=== PATIENT | male | born 1955 | race Caucasian/White ===

== ENCOUNTER 2024-06-29 00:52 | Inpatient (IN) | payer MEDICARE, OTHER, SELFPAY ==
[2024-06-28 19:37] VITALS: BP 111/74; BMI 32.2
[2024-06-28 19:38] VITALS: BP 111/74
[2024-06-28 19:58] LABS: % Basophils 0.2 % (0-2); % Eosinophils 0.3 % (0-6); % Immature Granulocytes 0.5 % (0-0.5); % Lymphocytes 8.6 % (20.5-51.1); % Neutrophils 80.4 % (42.2-75.2); Absolute Immature Granulocytes 0.1 10^3/uL (0-0.05); Absolute Lymphocytes 1.2 10^3/uL (1.2-3.4); Absolute Monocytes 1.4 10^3/uL (0.1-0.6); Absolute Neutrophils 11.1 10^3/uL (1.4-6.5); Hematocrit 31.3 % (39.0-52.0); Hemoglobin 10.6 g/dL (13.0-18.0); Mean Corp Hgb Conc. 33.9 g/dL (33.0-37.0); Mean Corpuscular Hgb 30.5 pg (27.0-31.0); Mean Corpuscular Volume 90.2 fL (80.0-94.0); Mean Platelet Volume 9.2 fL (7.4-10.4); Nucleated Red Blood Cells % 0 % (-); Platelet Count 276 10^3/uL (130-400); Red Blood Cell Count 3.47 10^6/uL (4.70-6.10); Red Cell Dist. Width 13.2 % (11.5-14.5); White Blood Cell Count 13.8 10^3/uL (4.8-10.8)
[2024-06-28 20:00] VITALS: BP 117/64
[2024-06-28 20:23] LABS: Troponin I < 0.012 ng/ml
[2024-06-28 20:31] LABS: ALT (SGPT) 18 U/L (0-50); AST (SGOT) 19 U/L (17-59); Albumin 4.1 g/dl (3.5-5.0); Alkaline Phosphatase 86 U/L (38-126); Blood Urea Nitrogen 32 mg/dl (9-20); Calcium 9.7 mg/dl (8.4-10.2); Carbon Dioxide 16 mmol/L (22-30); Chloride 101 mmol/L (98-107); Estimated Creatinine Clearance 46 ml/min; Glucose 153 mg/dl (70-99); Potassium 3.9 mmol/L (3.5-5.1); Sodium 134 mmol/L (135-145); Total Bilirubin 0.7 mg/dl (0.2-1.3); Total Protein 6.6 g/dl (6.3-8.2); eGFR 42.57
[2024-06-28 21:00] VITALS: BP 110/75
--- NOTE | 2024-06-28 21:49 | ED.GENMED ---
History of Present Illness
General
Chief Complaint: Dizziness
Source: patient and spouse
Exam Limitations: none
Time Seen by Provider: 06/28/24 20:46
Nursing documentation reviewed up to this point in time: agreed with
History of Present Illness
History of Present Illness:
69-year-old male with a past medical history of hypertension, hyperlipidemia, diabetes, bladder cancer status post cystectomy with urostomy bag in place; he presents to the emergency room today for evaluation after an episode of
dizziness/lightheadedness. Patient reports that he has been feeling unwell for the past few days with poor appetite and mild nausea. He says he has had some mild chills but no objective fever. Tonight he went to dinner at a friend's house and
while he was eating some pizza and beer began to have lightheadedness. Spouse says that they witnessed him become clammy, pale, confused with his eyes staring forward. No complete loss of consciousness. Lasted for about 15 to 20 seconds. EMS
called to bring her to the hospital. Patient says he did not have any chest pain or shortness of breath during the episode. He did have some dry heaving shortly after. No abdominal pain or flank pain. No headache. No other complaints noted.
Review of Systems
Review of Systems
All Other Systems: ROS reviewed and negative except as documented in HPI and ROS
Constitutional: Reports chills; Denies fever
EENT: Denies sore throat or runny nose
Respiratory: Denies cough or trouble breathing
Cardiac: Denies chest pain or palpitations
ABD/GI: Reports nausea and vomiting; Denies abdominal pain or diarrhea
: Denies flank pain
Musculoskeletal: Denies neck pain or back pain
Skin: Denies rash
Neurological: Reports dizzy; Denies headache
Phy Exam
Physical Exam
Physical Exam:
General: Awake, alert, oriented x3; no acute distress
Head: Normocephalic, atraumatic
Eyes: Conjunctiva normal, EOMI, pupils equal round and reactive to light bilaterally
Throat: Airway intact, handling secretions
Neck: Trachea midline, supple without meningismus
Lungs: Clear to auscultation bilaterally, no wheezing, rales, rhonchi
Heart: Tachycardia with regular rhythm, no murmurs, gallops, or rubs
Abd: Soft, non distended, nontender, urostomy in place with dark yellow urine and some sediment
Neuro: Cranial intact, speech fluid, no motor or sensory deficits
Skin: no rash
Extremities: No edema in extremities, equal pulses in all extremities
Scores
Heart Failure Risk
Heart Failure Risk Score: Not Applicable
Heart Score for Chest Pain Patients
STEMI patient?: Not applicable
Withdrawal Assessment of Alcohol
Withdrawal Assessment Completed?: Not applicable
Course
Orders/Labs/Results
Orders:
Orders
06/28/24 19:50
Electrocardiogram (*1) Urgent
Reason for Study: Other
Other Reason for Exam: Respiratory Distress
EKG- Treatment ONCE
06/28/24 19:52
Complete Blood Count/With Diff Urgent
Comprehensive Metabolic Panel Urgent
Troponin I Urgent
06/28/24 21:05
CT Abd/pel Without Iv Or Oral Urgent
Comment:
Reason For Exam: abnormal renal function, chills, r/o obstruction
CT Head W/o Iv Contrast Urgent
Comment:
Reason For Exam: nausea, syncope
06/28/24 21:06
CR Chest - 2 Views Urgent
Comment:
Reason For Exam: chills, eval for pna
06/28/24 22:05
COVID-19 Antigen Urgent
Source: Nasal Swab
Lactate Level [Lactic Acid] Urgent
Blood Culture Q30M
IRA Source: Blood/Venous
Specimen Description:
Blood Culture Q30M
IRA Source: Blood/Venous
Specimen Description:
Influenza A+B Rapid Molecular Urgent
IRA Source: Nasal Swab
Specimen Description:
06/28/24 23:05
Urinalysis Reflex To Culture Urgent
Date Specimen was Collected: 06/28/24
Time Specimen was Collected: 23:04
Urine Microscopic Reflex Cult Urgent
Urine Culture Urgent
IRA Source: U
Specimen Description:
Date Specimen was Collected: 06/28/24
Time Specimen was Collected: 23:04
06/28/24 23:18
0.9% Sodium Chloride 1000 ml [Nss] 1,000 ml IV BOLUS
CefTRIAXone [Rocephin] 1,000 mg IV NOW STA
Abnormal Lab Results
06/28/24 06/28/24
19:52 23:05
WBC 13.8 H 10^3/uL
(4.8-10.8)
RBC 3.47 L 10^6/uL
(4.70-6.10)
Hgb 10.6 L g/dL
(13.0-18.0)
Hct 31.3 L %
(39.0-52.0)
Abs Immat Gran (auto) 0.1 H 10^3/uL
(0-0.05)
Absolute Neuts (auto) 11.1 H 10^3/uL
(1.4-6.5)
Absolute Monos (auto) 1.4 H 10^3/uL
(0.1-0.6)
Neutrophils % 80.4 H %
(42.2-75.2)
Lymphocytes % 8.6 L %
(20.5-51.1)
Monocytes % 10.0 H %
(1.7-9.3)
Sodium 134 L mmol/L
(135-145)
Carbon Dioxide 16 L mmol/L
(22-30)
BUN 32 H mg/dl
(9-20)
Creatinine 1.7 H mg/dL
(0.7-1.3)
Glucose 153 H mg/dl
(70-99)
Ur Occult Blood Reflex 2+ A
(Negative)
Urine Nitrite (Reflex) Positive A
(Negative)
Leukocyte Esterase Rfl 3+ A
(Negative)
Urine RBC 7-10 A /HPF
(0-2)
Urine WBC (Reflex) 30-40 A /HPF
(0-5)
Urine Bacteria (Reflex) Many A
(Negative)
Urine Albumin (Reflex) 2+ A
(Neg - Trace)
06/28/24 19:52
06/28/24 19:52
Vital Signs
Initial and Last Documented VS:
Initial Vital Signs
Temp Pulse Resp BP Pulse Ox
37.2 C 107 24 111/74 96
06/28/24 19:37 06/28/24 19:37 06/28/24 19:37 06/28/24 19:37 06/28/24 19:37
Last Documented Vital Signs
Temp Pulse Resp BP Pulse Ox
37.2 C 86 26 103/69 94
06/28/24 19:37 06/28/24 23:00 06/28/24 23:00 06/28/24 23:00 06/28/24 23:00
MDM/Problems Addressed
Differential Diagnosis Includes:
Lightheadedness/clamminess: Vasovagal syncope, orthostasis, dysrhythmia, seizure considered less likely
Malaise, chills, nausea: Viral syndrome, electrolyte derangement, pneumonia, UTI
MDM/Problems Addressed:
69-year-old male with history as noted presents to the ER for evaluation of episode of lightheadedness and clamminess/confusion in the setting of recent malaise. Also had some nausea/vomiting this evening. Tachycardic with mild tachypnea but
otherwise normal vitals. Physical exam as above. Will place an IV send labs including a CBC and a CMP, lactate, blood cultures. Check EKG and troponin. Swab for COVID and flu. Check chest x-ray and urinalysis. Will check CT head. Reassess
after the above.
Initial labs reviewed: CBC shows leukocytosis to 13.8. Stable anemia at 10.6. CMP shows creatinine of 1.7�no baseline available for comparison. Provide IV fluids. Add CT abdomen pelvis to rule out obstruction.
CT head negative for any acute pathology. CT abdomen pelvis shows perinephric stranding nonspecific�UA pending. Chest x-ray showed no pneumonia. COVID and flu negative. Continue to monitor.
UA is positive for nitrites this finding in conjunction with perinephric edema concerning for possible pyelonephritis. He has multiple SIRS criteria with leukocytosis, tachypnea, tachycardia on presentation (although tachycardia has improved with
fluids). Renal function abnormal with a creatinine of 1.7�he was able to pull up prior labs from February shows that his creatinine was at baseline 1.3�1.4. Will plan to admit for continued monitoring, fluids overnight, IV antibiotics. Blood
culture sent and pending. Case discussed with hospitalist.
Chronic conditions affecting care:
Bladder cancer status post cystectomy
*Radiology
Radiology exam reviewed: preliminary read by ED provider and radiology read reviewed
*Pulse Oximetry
Patient hypoxic: no
*EKG
Interpreted by ED Provider?: Yes
Heart Rate: 100
Rate: normal
Rhythm: sinus and PAC's
[place]: left axis deviation
Interval: normal interval
QRS Pattern: normal QRS
Ischemia: other (inferior infarct age indetermined )
*Critical Care Note
Total Time (30-74mins, 75-104mins- exclusive of procedures): Not Applicable
Patient Management
Discussion with other providers: Hospitalist (Discussed with hospitalist)
Escalation/DeEscalation of care consider admission/obs:
Admission indicated
ED Attending Note
-
Portions of this chart may have been created with voice recognition software.� Occasional wrong word or��sound alike� substitutions may have occurred due to the inherent limitations of voice recognition software.
Discharge Plan
Departure
Patient Disposition: Admit
Date of Disposition: 06/28/24
Time of Disposition: 23:26
Admit to doctor: Gael
Presentation/result/management discussed w/ accepting MD/DO: Hospitalist
Discharge Problem:
Complicated urinary tract infection, DANAY (acute kidney injury)
Referrals:
Dennys Douglas DO [Family Provider] -
Interventions
Interventions:
*Risk Screen - Suicide Last Done: 06/28/24 19:37
*General Assessment Last Done: 06/28/24 19:37
*Neglect/Abuse Screening Last Done: 06/28/24 19:37
ED- Neurological Assessment Last Done: 06/28/24 20:14
ED- Cardiac Assessment Last Done: 06/28/24 20:14
Discharge Date and Time
Print Language: AFGHAN
[2024-06-28 22:04] VITALS: BP 105/72
[2024-06-28 22:25] LABS: Lactic Acid 0.9 mmol/L (0.7-2.0)
[2024-06-28 22:31] LABS: COVID-19 Antigen Negative (Negative)
[2024-06-28 23:00] VITALS: BP 103/69
[2024-06-28 23:09] LABS: Urine Albumin 2+ (Neg - Trace); Urine Bilirubin Negative (Negative); Urine Character Clear (Clear); Urine Color Yellow; Urine Glucose Negative (Negative); Urine Ketone Negative (Negative); Urine Leukocyte 3+ (Negative); Urine Nitrite Positive (Negative); Urine Occult Blood 2+ (Negative); Urine Urobilinogen Negative (Neg - 1+)
[2024-06-28 23:19] LABS: Urine Bacteria Many (Negative); Urine Squamous Cell None seen /LPF (Few); Urine White Cell 30-40 /HPF (0-5)
[2024-06-28] MEDS: NSS 1000 IV ×2 (23:28)
[2024-06-28] MEDS: ROCEPHIN 1000 MG IV (23:28)
[2024-06-29] VITALS (11 sets, daily range): BP systolic 106–134; BP diastolic 61–78; PULSE 80–100; O2SAT 96; BMI 35.8
--- NOTE | 2024-06-29 00:35 | HPS.HSE ---
Family Physician
-
Family Physician: Dennys Douglas
Chief Complaint
-
Syncope
History of Present Illness
Patient is a 69y M with PMH significant for hypertension, DM-II and bladder cancer who presents to ED complaining of syncopal episode this evening. Patient reports feeling poorly for the past few days. He notes symptoms of lightheadedness /
dizziness, chills, fatigue. He has appreciated a darker color to his urine for the past few days as well. This AM he was seen by his Oncologist at [place] for evaluation. He felt fairly well following that appointment. he took a nap this
afternoon and then went to visit friends for dinner. He had one beer at dinner and began to feel lightheaded and dizzy. He apparently then lost consciousness. 911 was called and patient states that he does recall EMS evaluation and getting into
the ambulance. En route to the ED, patient had an episode of emesis in the ambulance.
At the time of my examination, patient states that he is feeling improved from prior.
He denies any abdominal pain, flank pain, cough, dyspnea, etc.
Medical History
Past Medical History
Past Medical History: Reports Other
Additional Past Medical History:
Bladder Cancer s/p Chemotherapy, Cystectomy and Immunotherapy
Chronic Anemia
CKD (? stage)
Peripheral Neuropathy
DM-II
Hypertension
Diverticular Disease
Past Surgical History: Reports Other
Additional Past Surgical History:
TURBT
Cystectomy
Ileal Conduit Formation / Urostomy
Sigmoid Resection / Colostomy
Colostomy Reversal
Left TKA
Social History
Tobacco: Non-smoker
Alcohol: Occasional
Drug: None
Personal:
Living: With Family
Family History
Family History: Other (Father: Cancer, DM Mother: COPD, Hypertension MGM: Colon Cancer)
Allergies / Home Medications
Allergies reflects when Allergies were last updated in [email or web address].
Home Medications with original date entered in [email or web address]
Allergy/Medication List:
Allergies
Allergy/AdvReac Type Severity Reaction Status Date / Time
Penicillins Allergy Hives Verified 06/28/24 19:37
Home Medications
atorvastatin 10 mg tablet 10 mg PO HS 06/28/24
finasteride 1 mg tablet 1 mg PO DAILY 06/28/24
fluoxetine 20 mg tablet 20 mg PO DAILY 06/28/24
gabapentin 300 mg capsule 300 mg PO DAILY PRN pain 06/28/24
gabapentin 300 mg capsule 900 mg PO BID 06/28/24
losartan 50 mg-hydrochlorothiazide 12.5 mg tablet 1 tab PO DAILY 06/28/24
metformin 500 mg tablet 1,000 mg PO BID 06/28/24
metoprolol succinate 25 mg tablet,extended release 24 hr 25 mg PO DAILY 06/28/24
Review of Systems
-
History Source: Patient
A 12 point ROS was completed and negative except as noted: Yes
Constitutional: Reports Fever, Fatigue and Chills
Respiratory: Denies Cough or Trouble Breathing
Cardiac: Reports Syncope; Denies Chest Pain or Palpitations
Abdomen/GI: Reports Nausea and Vomiting; Denies Abdominal Pain or Diarrhea
: Denies Dysuria, Frequency or Flank Pain
Musculoskeletal: Denies Joint Pain or Edema
Neurological: Reports Dizzy; Denies Headache
Psych: Denies Depression or Anxiety
Physical Exam
Vital Signs
Vital Signs
Temp Pulse Resp BP Pulse Ox
98.9 F 86 26 103/69 94
06/28/24 19:37 06/28/24 23:00 06/28/24 23:00 06/28/24 23:00 06/28/24 23:00
Physical Exam
General: Other (69y M in no acute distress.)
HEENT: Moist mucous membranes and PERRLA
Respiratory: Clear; No Wheezes, Rales or Rhonchi
Cardiac: S1/S2 and Regular Rhythm; No Murmur
GI: Soft, Non Tender, Non Distended, Normal Bowel Sounds and Other (RLQ urostomy with clear yellow urine in device.)
Genito-urinary: No costovertebral tender
Musculoskeletal: No Clubbing, No Cyanosis and No Edema
Neuro: AO x 3
Laboratory Results
-
06/28/24 19:52
06/28/24 19:52
Laboratory Results
Lactic Acid 0.9 mmol/L (0.7-2.0) 06/28/24 22:05
Total Bilirubin 0.7 mg/dl (0.2-1.3) 06/28/24 19:52
AST 19 U/L (17-59) 06/28/24 19:52
ALT 18 U/L (0-50) 06/28/24 19:52
Alkaline Phosphatase 86 U/L (38-126) 06/28/24 19:52
Troponin I < 0.012 ng/ml 06/28/24 19:52
Impression/Plan
-
A/P: Patient is a 69y M with PMH significant for bladder cancer, hypertension and DM-II who presents to ED for evaluation of syncopal episode this evening.
Pyelonephritis
Sepsis secondary to the above
- Admit for further evaluation and treatment.
- Patient presents with leukocytosis, tachycardia, tachypnea and UA consistent with infection.
- CT scan shows no evidence of obstruction. Bilateral perinephric stranding / edema appreciated.
- Continue IV abx and follow-up culture data.
- Follow for continued clinical improvement.
- Supportive care including IVFs, antipyretics, etc.
Syncope
- Likely secondary to the above.
- Monitor on tele overnight to rule out arrhythmia.
- IVFs support as noted above.
- Follow orthostatic signs.
- PT eval in the AM.
CKD
- Unknown baseline renal function / stage.
- SCr today is 1.7
- Follow for changes over the next 48 hours to determine baseline.
Normocytic Anemia
- Patient reports chronic anemia, but unknown baseline.
- Check iron studies, B12, folate, etc.
- Follow for changes or any evidence of gross bleeding, etc.
Benign Hypertension
- Hold losartan / HCTZ acutely.
- Continue metoprolol with holding parameters.
DM-II
- Stable. Hold metformin.
- Follow glucose and cover with SSI as needed.
- Update A1C.
Peripheral Neuropathy
- Stable. Continue gabapentin.
History of Bladder Cancer
- Not on active therapy.
- Routine ostomy care for ileal conduit / urostomy.
DVT Prophylaxis: Subcut heparin
Code Status: Full
[2024-06-29 02:00] LABS: Glucose - Point of Care 136 mg/dl (70-99)
--- NOTE | 2024-06-29 02:00 | TRANSFER ---
pt arrived from ED via stretcher accompanied by ED staff. pt walked from stretcher to bed with a rolling walker and standby assist. VSS upon arrival. pt AAOx3, call asencio within reach, plan of care ongoing.
[2024-06-29 04:59] LABS: Hematocrit 28.3 % (39.0-52.0); Hemoglobin 9.5 g/dL (13.0-18.0); Mean Corp Hgb Conc. 33.6 g/dL (33.0-37.0); Mean Corpuscular Hgb 30.8 pg (27.0-31.0); Mean Corpuscular Volume 91.9 fL (80.0-94.0); Mean Platelet Volume 9.5 fL (7.4-10.4); Platelet Count 268 10^3/uL (130-400); Red Blood Cell Count 3.08 10^6/uL (4.70-6.10); Red Cell Dist. Width 13.2 % (11.5-14.5); White Blood Cell Count 12.5 10^3/uL (4.8-10.8)
[2024-06-29 05:38] LABS: Blood Urea Nitrogen 27 mg/dl (9-20); Calcium 9.5 mg/dl (8.4-10.2); Carbon Dioxide 23 mmol/L (22-30); Chloride 105 mmol/L (98-107); Estimated Creatinine Clearance 59 ml/min; Glucose 116 mg/dl (70-99); Iron 23 ug/dl (49-181); Potassium 3.8 mmol/L (3.5-5.1); Sodium 137 mmol/L (135-145); eGFR 53.74
[2024-06-29 05:47] LABS: Percent Saturation 8 % (20-50); Total Iron Binding Capacity 260 ug/dl (261-462)
[2024-06-29 06:42] LABS: Folate > 20.0 ng/ml (2.76-20); Vitamin B12 947 pg/ml (239-931)
[2024-06-29 08:17] LABS: Glucose - Point of Care 112 mg/dl (70-99)
[2024-06-29] MEDS: NSS 1000 IV ×2 (08:37→23:41)
[2024-06-29] MEDS: NEURONTIN 300 MG PO (08:43)
[2024-06-29] MEDS: TOPROL XL 25 MG PO (08:44)
[2024-06-29] MEDS: PROZAC 20 MG PO (08:44)
[2024-06-29] MEDS: HEPARIN 5000 UNITS SC (08:44)
--- NOTE | 2024-06-29 08:46 | W.PN.HOSP.TC ---
Addendum entered and electronically signed by Pierre Hernandez MD 06/29/24 08:56:
WIth anemia will hold hep, start BID PPI and pending FOBT - RN notified
As per patient - usual Hgb around 12g/dL
Original Note:
Today's Communication/Plan
-
see PN
Assessment / Plan
Assessment / Plan
69yo M with PMHX of DM, HTN, neuropathy, BPH, Hx of urinary bladder CA s/p resction and diverting urostomy came after episode of syncope with lightheadedness prodrome, no chest pain or palpitation reported. Patient was seen in oncology office in AM
of same day and his BP was low >100. Has Hx of premature beats, seeing [facility] attendant for that. FOund b/l perinephrioc stranding on CT abd managed for pyelonephritis
A/P:
#Syncope most likely 2/2 hypotension due to pyelonephritis, concern for sepsis on admission
#Hx of urinary bladder ca s/p diverting urostomy
#DANAY vs CKD
follow Cr
Telemetry without arrhythmia - cont. No reported seizure activity
Ceftriaxone, follow Ucx, Bcx
Hold losartan and HCTZ
IVF
Encourage oral intake as patient feeling on baseline on the second day after admission and capable to hydrate
check TSH and
HEad CT without acute abnormality
Urostomy care
#DM type 2 with neuropathy
Hold metformin
Accuchecks, Insulin SS, DM diet
#Anemia
no ovdert bleeding
mixed chronic and AGUSTIN
follow CBC
check FOBT
patient has hematology/oncology in [facility]
Encourage to follow with them
#Pulmonary nodule
known to patient, monitoed with regular CT
#Essential HTN
#Hx pf premature arrhtythmia
DVT ppx hep
Full code
I have spent at least 57min reviewing chart, test result and providing direct patient care
Anticipated Discharge: 24 - 48 hours
Subjective/Interval History
-
Date of Service: June 29, 2024
Objective Data
-
Labs:
Laboratory Results
06/29/24
04:43
WBC 12.5 H
Hgb 9.5 L
Hct 28.3 L
Plt Count 268
Sodium 137
Potassium 3.8
Chloride 105
Carbon Dioxide 23
BUN 27 H
Creatinine 1.4 H
Glucose 116 H
Calcium 9.5
Vital Signs:
Vital Signs
Temp Pulse Resp BP Pulse Ox
98.5 F 88 20 115/75 96
06/29/24 07:37 06/29/24 07:37 06/29/24 07:37 06/29/24 07:37 06/29/24 07:37
I&O
06/28/24 06/29/24 06/30/24
06:59 06:59 07:59
Intake Total 1105 / 1105
Output Total 725 / 725
Balance 380 / 380
Review of Systems
-
History Source: Patient
All other systems: Reviewed and negative
Physical Exam
-
General: Comfortable
HEENT: Normocephalic
Respiratory: Clear to Auscultation
Cardiac: Regular Rhythm
GI: Soft, Nontender and Nondistended
Genito-urinary: Other (diverting urostomy with clear urine)
Skin: Warm
Neuro: Awake, Alert, Oriented and AO x 3
Psych: Calm
[2024-06-29] MEDS: NSS (PRESERVATIVE FREE) 10 ML IV ×2 (09:21→20:19)
[2024-06-29] MEDS: PROTONIX IV 40 MG IV ×2 (09:21→20:19)
[2024-06-29 09:52] LABS: TSH Reflex To Free T4 1.04 uIU/ml (0.47-4.68)
[2024-06-29 13:14] LABS: Glucose - Point of Care 123 mg/dl (70-99)
--- NOTE | 2024-06-29 13:46 | CM ---
Initial assessment completed with pt at bedside.
Pt is a 69yr old male admitted with pyelonephritis and sepsis.
At baseline, pt lives with his in a 2 story home with 2 steps to enter.
Pt has a 2nd floor bed and full bath and a 1st floor powder room.
Pt is indep with mobility and ADLs. Pt has a RW, cane, comfort height toilet, and CPAP.
Pt has had VN but does not remember the name of the agency, and has no SNF placement hx.
Pt had a knee replacement in the past that is not recovered and gives him continued pain.
PCP; Dennys Douglas
Pharm; [facility]
PLAN; Home with no needs
[2024-06-29 16:39] LABS: Glucose - Point of Care 139 mg/dl (70-99)
--- NOTE | 2024-06-29 16:43 | CON.ID ---
Consultation
-
Date/Time Consultation Requested: June 29, 2024 1215
Date/Time Consultation Performed: June 29, 2024 1645
Requesting Provider: Dr. Pierre Rodriguez
Performing Provider: Dr. Joelle Palacios
Reason for Consultation: UTI/bacteremia
Chief Complaint / Past History
Chief Complaint
Syncope
History of Present Illness
69-year-old male with diabetes mellitus, bladder cancer status post cystectomy with ileal conduit and completed immunotherapy, history of left TKA who presented to the hospital last night after he passed out. He states he has not been feeling well
for the last 2 to 3 weeks. He had fever on Basilio's Day and had blood work done which was unremarkable. Since then he has been feeling weaker, occasional chills, poor appetite. While visiting his friend, he felt very lightheaded and lost
consciousness. He vomited in the ambulance. Noted darker urine. But otherwise no flank pain cough or shortness of breath. Since left total knee replacement, he has discomfort over the left knee especially with movement. On June 10, 2024,
Ortho tapped the knee which showed 9,000 white blood cells, 80% polys, negative crystals, negative culture, negative fungal culture. In the ED his white count was 13.8. Urinalysis positive nitrite 3+ leukocyte esterase, 30-40 white blood cells.
Urine culture pending. Admission blood cultures x 2 Klebsiella. CAT scan of the abdomen and pelvis prominent bilateral perinephric edema nonspecific. Patient is currently on ceftriaxone. He feels a little bit better.
Past History
Additional Past Medical History:
Diabetes mellitus
Peripheral neuropathy
CKD
Hypertension
History of bladder cancer status post chemotherapy, cystectomy with ileal conduit, immunotherapy
Diverticulitis status post sigmoid resection with colostomy subsequently reversed
left TKA
Allergy History:
Penicillins Allergy (Verified 06/28/24 19:37)
Hives
Medications Reviewed: Yes
Current Antibiotics:
Ceftriaxone day 2
Social History
Tobacco: Non-Smoker
Alcohol: None
Drug: None
Personal:
Family History
Family History: Not Pertinent
Review of Systems
Review of Systems
General: Chills and Change in Appetite
HEENT: Negative Sinus Problems, Headache or Pharyngitis
Cardiovascular: Negative Chest Pain or Dyspnea
Respiratory: Negative Dyspnea or Cough
Gasteroenterology: Negative Nausea, Vomiting or Diarrhea
Genital / Urological: Negative Hematuria or Flank Pain
Endocrine: Weakness and Fatigue
Skin / Hair / Nails: Negative Rash
All systems: All other systems were reviewed and were negative
Vital Signs
Temp Pulse Resp BP Pulse Ox
98.3 F 82 20 110/67 96
06/29/24 15:05 06/29/24 15:05 06/29/24 15:05 06/29/24 15:05 06/29/24 15:05
Physical Exam
Physical Exam
Constitutional: No Acute Distress and Comfortable
Head: Other (No frontal or max or sinus tenderness)
Eyes: No Conjunctival Hemorrhage and Sclera Anicteric
Cardiovascular: Regular Rate and S1/S2
Pulmonary: Clear
Gastrointestinal: Soft, Non Tender, Non Distended and Normal Bowel Sounds
Genito-Urinary: Clear Urine (Urostomy); Negative CVA Tenderness
Extremities: Edema (LLE 1+)
Musculoskeletal: Other (Left knee, no effusion, no erythema, range of motion intact.)
Neurological: AO x 3
Lab / Diagnostic Study Results
06/29/24 04:43
06/29/24 04:43
Abs Immat Gran (auto) 0.1 10^3/uL (0-0.05) H 06/28/24 19:52
Absolute Neuts (auto) 11.1 10^3/uL (1.4-6.5) H 06/28/24 19:52
Absolute Lymphs (auto) 1.2 10^3/uL (1.2-3.4) 06/28/24 19:52
Absolute Monos (auto) 1.4 10^3/uL (0.1-0.6) H 06/28/24 19:52
Absolute Basos (auto) 0.0 10^3/uL (0-0.2) 06/28/24 19:52
Immature Gran % 0.5 % (0-0.5) 06/28/24 19:52
Neutrophils % 80.4 % (42.2-75.2) H 06/28/24 19:52
Lymphocytes % 8.6 % (20.5-51.1) L 06/28/24 19:52
Monocytes % 10.0 % (1.7-9.3) H 06/28/24 19:52
Eosinophils % 0.3 % (0-6) 06/28/24 19:52
Basophils % 0.2 % (0-2) 06/28/24 19:52
Lactic Acid 0.9 mmol/L (0.7-2.0) 06/28/24 22:05
Ur Squamous Epith Cells None seen /LPF (Few) 06/28/24 23:05
Microbiology Results
Micro:
06/28/24 22:05 Blood Culture - Preliminary
Blood/Venous Klebsiella pneumoniae
Gram Stain - Final
06/28/24 22:05 Blood Culture - Preliminary
Blood/Venous Positive culture in progress
Gram Stain - Final
06/29/24 13:16 Blood Culture - Pending
Blood/Venous
06/29/24 12:39 Blood Culture - Pending
Blood/Venous
06/28/24 23:05 Urine Culture - Pending
Urine
06/28/24 22:05 Influenza Types A & B (NATALIE) - Final
Nasal Swab Negative for Influenza A & B, NAAT
Negative results must be combined with clinical observations
and patient history.
Nucleic Acid Amplification test (NAAT)performed on the
[employer] platform.
06/28/24 CT a/p: No urinary calculi or elicia hydronephrosis. Prominent bilateral perinephric edema is nonspecific. Ascending urinary tract infection not excluded.
Assessment / Plan
#Klebsiella bacteremia
#Suspected UTI
#Leukocytosis trending down
#History of bladder cancer status post cystectomy with ileal conduit
-CT of the abdomen pelvis-with nonspecific bilateral perinephric edema, cannot rule out ascending urinary tract infection
-Follow repeat blood cultures.
-Continue with ceftriaxone pending culture data.
-Trend white blood cell count.
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
Diabetes mellitus
Peripheral neuropathy
CKD
Hypertension
History of bladder cancer status post chemotherapy, cystectomy with ileal conduit, immunotherapy
Diverticulitis status post sigmoid resection with colostomy subsequently reversed
left TKA
[2024-06-29] MEDS: ROCEPHIN 1000 MG IV ×2 (20:39)
[2024-06-29] MEDS: STERILE WATER FOR INJECTION 10 ML IV (20:40)
[2024-06-29] MEDS: LIPITOR 10 MG PO (20:40)
[2024-06-29 21:33] LABS: Glucose - Point of Care 104 mg/dl (70-99)
[2024-06-30 03:08] VITALS: BP 114/74
[2024-06-30 06:25] LABS: % Basophils 0.4 % (0-2); % Eosinophils 3.1 % (0-6); % Immature Granulocytes 0.3 % (0-0.5); % Lymphocytes 14.4 % (20.5-51.1); % Monocytes 12.2 % (1.7-9.3); % Neutrophils 69.6 % (42.2-75.2); Absolute Eosinophils 0.2 10^3/uL (0-0.7); Absolute Lymphocytes 1.1 10^3/uL (1.2-3.4); Absolute Neutrophils 5.4 10^3/uL (1.4-6.5); Hematocrit 27.5 % (39.0-52.0); Hemoglobin 9.3 g/dL (13.0-18.0); Mean Corp Hgb Conc. 33.8 g/dL (33.0-37.0); Mean Corpuscular Hgb 30.2 pg (27.0-31.0); Mean Corpuscular Volume 89.3 fL (80.0-94.0); Mean Platelet Volume 9.4 fL (7.4-10.4); Nucleated Red Blood Cells % 0 % (-); Platelet Count 257 10^3/uL (130-400); Red Blood Cell Count 3.08 10^6/uL (4.70-6.10); Red Cell Dist. Width 13.2 % (11.5-14.5); White Blood Cell Count 7.8 10^3/uL (4.8-10.8)
[2024-06-30 06:48] LABS: ALT (SGPT) 17 U/L (0-50); AST (SGOT) 16 U/L (17-59); Albumin 3.1 g/dl (3.5-5.0); Alkaline Phosphatase 72 U/L (38-126); Blood Urea Nitrogen 25 mg/dl (9-20); Calcium 9.5 mg/dl (8.4-10.2); Carbon Dioxide 22 mmol/L (22-30); Chloride 110 mmol/L (98-107); Estimated Creatinine Clearance 64 ml/min; Glucose 101 mg/dl (70-99); Potassium 4.5 mmol/L (3.5-5.1); Sodium 139 mmol/L (135-145); Total Bilirubin 0.4 mg/dl (0.2-1.3); Total Protein 5.5 g/dl (6.3-8.2); eGFR 58.73
[2024-06-30 07:12] VITALS: BP 120/72
[2024-06-30] MEDS: PROTONIX IV 40 MG IV ×2 (08:20→21:07)
[2024-06-30] MEDS: TOPROL XL 25 MG PO (08:20)
[2024-06-30] MEDS: PROZAC 20 MG PO (08:20)
[2024-06-30] MEDS: NEURONTIN 300 MG PO ×2 (08:20→21:06)
[2024-06-30] MEDS: NSS (PRESERVATIVE FREE) 10 ML IV ×2 (08:20→21:07)
[2024-06-30 08:49] LABS: Glucose - Point of Care 104 mg/dl (70-99)
--- NOTE | 2024-06-30 09:51 | W.PN.ID1 ---
Date of Service
Date of Service: June 30, 2024
Today's Communication
Continue ceftriaxone
Assessment / Plan
#Klebsiella bacteremia
#Suspected UTI
#Leukocytosis resolved
#History of bladder cancer status post cystectomy with ileal conduit
-CT of the abdomen pelvis-with nonspecific bilateral perinephric edema, cannot rule out ascending urinary tract infection
-Follow repeat blood cultures.
-Continue with ceftriaxone (d3) pending culture data.
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
Diabetes mellitus
Peripheral neuropathy
CKD
Hypertension
History of bladder cancer status post chemotherapy, cystectomy with ileal conduit, immunotherapy
Diverticulitis status post sigmoid resection with colostomy subsequently reversed
left TKA
Chief Complaint
-: Bacteremia
Subjective / Review of Systems
Feels well.
Vital Signs / Physical Exam
Vital Signs
Vital Signs
Temp Pulse Resp BP Pulse Ox
99.4 F 82 18 120/72 94
06/30/24 07:12 06/30/24 07:12 06/30/24 07:12 06/30/24 07:12 06/30/24 07:12
Physical Exam
Constitutional: No Acute Distress and Comfortable
Cardiovascular: Regular Rate and S1/S2
Pulmonary: Clear
Gastrointestinal: Soft, Non Tender and Non Distended
Genito-Urinary: Clear Urine (urostomy)
Musculoskeletal: Other (left knee no effusion/erythema)
Neurological: AO x 3
Objective Data
Lab Data
Lab Results
06/30/24 06:06
06/30/24 06:06
Estimated Creat Clear 64 ml/min 06/30/24 06:06
Lactic Acid 0.9 mmol/L (0.7-2.0) 06/28/24 22:05
Total Bilirubin 0.4 mg/dl (0.2-1.3) 06/30/24 06:06
AST 16 U/L (17-59) L 06/30/24 06:06
ALT 17 U/L (0-50) 06/30/24 06:06
Alkaline Phosphatase 72 U/L (38-126) 06/30/24 06:06
Most recent labs reviewed.
Micro Results:
06/28/24 22:05 Blood Culture - Preliminary
Blood/Venous Positive culture in progress
Gram Stain - Final
06/28/24 22:05 Blood Culture - Preliminary
Blood/Venous Klebsiella pneumoniae
Gram Stain - Final
06/28/24 23:05 Urine Culture - Preliminary
Urine
06/29/24 13:16 Blood Culture - Pending
Blood/Venous
06/29/24 12:39 Blood Culture - Pending
Blood/Venous
06/28/24 22:05 Influenza Types A & B (NATALIE) - Final
Nasal Swab Negative for Influenza A & B, NAAT
Negative results must be combined with clinical observations
and patient history.
Nucleic Acid Amplification test (NAAT)performed on the
[employer] platform.
06/28/24 CT a/p: No urinary calculi or elicia hydronephrosis. Prominent bilateral perinephric edema is nonspecific. Ascending urinary tract infection not excluded.
--- NOTE | 2024-06-30 10:55 | W.PN.HOSP.TC ---
Today's Communication/Plan
-
cont rocephin
Assessment / Plan
Assessment / Plan
69yo M with PMHX of DM, HTN, neuropathy, BPH, Hx of urinary bladder CA s/p resection and diverting urostomy came after episode of syncope with lightheadedness prodrome, no chest pain or palpitation reported. Patient was seen in oncology office in AM
of same day and his BP was low >100. Has Hx of premature beats, seeing student teaching coordinator for that. Found b/l perinephric stranding on CT abd managed for pyelonephritis with K.pneumonia bacteremia
A/P:
#Syncope most likely 2/2 hypotension due to pyelonephritis, concern for sepsis on admission complicated with bacteremia
#Hx of urinary bladder ca s/p diverting urostomy
#DANAY vs CKD
follow Cr
Telemetry without arrhythmia - cont. No reported seizure activity
Ceftriaxone, follow Ucx, Bcx - K.pneumonia, ID follows
Hold HCTZ, restart losartan watch Cr
Encourage oral intake as patient feeling on baseline on the second day after admission and capable to hydrate
TSH WNL
HEad CT without acute abnormality
Urostomy care
#DM type 2 with neuropathy
Hold metformin
Accuchecks, Insulin SS, DM diet
#Anemia
no overt bleeding
mixed chronic and AGUSTIN
follow CBC
check FOBT
patient has hematology/oncology in [facility]
Encourage to follow with them
#Pulmonary nodule
known to patient, monitored with regular CT
#Essential HTN
#Hx pf premature arrhythmia
DVT ppx hep
Full code
I have spent at least 57min reviewing chart, test result and providing direct patient care
Anticipated Discharge: 24 - 48 hours
Subjective/Interval History
-
Date of Service: June 30, 2024
Objective Data
-
Labs:
Laboratory Results
06/30/24
06:06
WBC 7.8
Hgb 9.3 L
Hct 27.5 L
Plt Count 257
Sodium 139
Potassium 4.5
Chloride 110 H
Carbon Dioxide 22
BUN 25 H
Creatinine 1.3
Glucose 101 H
Calcium 9.5
Total Bilirubin 0.4
AST 16 L
ALT 17
Alkaline Phosphatase 72
Vital Signs:
Vital Signs
Temp Pulse Resp BP Pulse Ox
99.4 F 82 18 120/72 94
06/30/24 07:12 06/30/24 07:12 06/30/24 07:12 06/30/24 07:12 06/30/24 07:12
I&O
06/29/24 06/30/24 07/01/24
05:59 06:59 06:59
Intake Total
Output Total
Balance
Review of Systems
-
All other systems: Reviewed and negative
Constitutional: Reports No Symptoms
Physical Exam
-
General: No Apparent Distress
HEENT: Normocephalic
Cardiac: Regular Rhythm
GI: Soft, Nontender and Nondistended
Skin: Warm
Neuro: Awake, Alert, Oriented and AO x 3
Psych: Calm
[2024-06-30 11:52] VITALS: BP 113/73
[2024-06-30 12:04] LABS: Glucose - Point of Care 135 mg/dl (70-99)
[2024-06-30] MEDS: FLUSH (NSS) 1 FLUSH IV (13:58)
[2024-06-30 15:58] VITALS: BP 117/75
[2024-06-30 16:43] LABS: Glucose - Point of Care 108 mg/dl (70-99)
[2024-06-30 19:37] VITALS: BP 124/80
[2024-06-30] MEDS: LIPITOR 10 MG PO (21:06)
[2024-06-30] MEDS: ROCEPHIN 1000 MG IV (21:07)
[2024-06-30] MEDS: STERILE WATER FOR INJECTION 10 ML IV (21:07)
[2024-06-30 21:27] LABS: Glucose - Point of Care 128 mg/dl (70-99)
[2024-06-30 23:55] VITALS: BP 148/82
[2024-07-01] VITALS (8 sets, daily range): BP systolic 114–136; BP diastolic 68–84; PULSE 72; O2SAT 96
[2024-07-01 04:53] LABS: Hemoglobin 9.3 g/dL (13.0-18.0)
[2024-07-01 05:15] LABS: Blood Urea Nitrogen 27 mg/dl (9-20); Calcium 9.5 mg/dl (8.4-10.2); Carbon Dioxide 22 mmol/L (22-30); Chloride 108 mmol/L (98-107); Estimated Creatinine Clearance 69 ml/min; Glucose 101 mg/dl (70-99); Potassium 4.2 mmol/L (3.5-5.1); Sodium 140 mmol/L (135-145); eGFR > 60.00
[2024-07-01 08:08] LABS: Glucose - Point of Care 116 mg/dl (70-99)
[2024-07-01] MEDS: TOPROL XL 25 MG PO (08:09)
[2024-07-01] MEDS: NEURONTIN 300 MG PO ×2 (08:09→19:39)
[2024-07-01] MEDS: PROZAC 20 MG PO (08:09)
[2024-07-01] MEDS: PROTONIX IV 40 MG IV ×2 (08:10→19:39)
[2024-07-01] MEDS: NSS (PRESERVATIVE FREE) 10 ML IV ×2 (08:10→19:39)
--- NOTE | 2024-07-01 08:32 | W.PN.HOSP.TC ---
Today's Communication/Plan
-
Continue antibiotics
Assessment / Plan
Assessment / Plan
Physical Exam
General: Not in acute distress
HEENT: Normocephalic
Cardiac: S1 and S2. Regular Rate and Rhythm
GI: Positive bowel sounds. Soft, Nontender and Nondistended.
Skin: Warm. Dry.
Neuro: Awake, Alert, Oriented x3
Psych: Calm
Assessment/Plan
69 y/o male with PMHX of DM, HTN, neuropathy, BPH, Hx of urinary bladder CA s/p resection and diverting urostomy came after episode of syncope with lightheadedness prodrome, no chest pain or palpitation reported. Patient was seen in oncology office
in AM of same day and his BP was low >100. Has Hx of premature beats, seeing antisqueak worker for that. Found b/l perinephric stranding on CT abd managed for pyelonephritis with K.pneumonia bacteremia
A/P:
#Syncope most likely 2/2 hypotension due to pyelonephritis, concern for sepsis on admission complicated with bacteremia
#Hx of urinary bladder ca s/p diverting urostomy
#DANAY vs CKD
follow Cr
Continue monitoring on telemetry. No reported seizure activity
Ceftriaxone, follow Ucx (preliminary positive), Bcx - K.pneumonia, ID follows
Hold HCTZ, Losartan
Encourage oral intake as patient feeling on baseline on the second day after admission and capable to hydrate
TSH WNL
HEad CT without acute abnormality
Urostomy care
#DM type 2 with neuropathy
Hold metformin
Accuchecks, Insulin SS, DM diet
#Anemia
no overt bleeding
mixed chronic and AGUSTIN
follow CBC
patient has hematology/oncology in [facility]
Encourage to follow with them
#Pulmonary nodule
known to patient, monitored with regular CT
#Essential HTN
#History of premature arrhythmia
DVT Prophylaxis: SCDs. Lovenox.
Code Status: Full code
Anticipated Discharge: 24 - 48 hours
Subjective/Interval History
-
Date of Service: July 01, 2024
Patient was seen and examined. He denied any symptoms or complaints.
Objective Data
-
Labs:
Laboratory Results
07/01/24
04:06
Hgb 9.3 L
Hct 28.0 L
Sodium 140
Potassium 4.2
Chloride 108 H
Carbon Dioxide 22
BUN 27 H
Creatinine 1.2
Glucose 101 H
Calcium 9.5
Vital Signs:
Vital Signs
Temp Pulse Resp BP Pulse Ox
98 F 81 18 136/77 98
07/01/24 08:25 07/01/24 08:25 07/01/24 08:25 07/01/24 08:25 07/01/24 08:25
I&O
06/30/24 07/01/24 07/02/24
06:59 06:59 06:59
Intake Total 1160 / 1160
Output Total 2375 / 2375
Balance -1215 / -1215
[2024-07-01 11:54] LABS: Glucose - Point of Care 134 mg/dl (70-99)
--- NOTE | 2024-07-01 14:33 | W.PN.ID1 ---
Date of Service
Date of Service: July 01, 2024
Today's Communication
Continue with ceftriaxone (d4) pending urine culture data.
Assessment / Plan
#Klebsiella bacteremia
# UTI
#Leukocytosis resolved
#History of bladder cancer status post cystectomy with ileal conduit
-CT of the abdomen pelvis-with nonspecific bilateral perinephric edema, cannot rule out ascending urinary tract infection
-repeat blood cultures neg
- Awaiting Ucx: GNR x 2 species, one of them Klebsiella as per micro
-Continue with ceftriaxone (d4) pending urine culture data.
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
Diabetes mellitus
Peripheral neuropathy
CKD
Hypertension
History of bladder cancer status post chemotherapy, cystectomy with ileal conduit, immunotherapy
Diverticulitis status post sigmoid resection with colostomy subsequently reversed
left TKA
Chief Complaint
-: Bacteremia
Subjective / Review of Systems
Feels well.
Vital Signs / Physical Exam
Vital Signs
Vital Signs
Temp Pulse Resp BP Pulse Ox
97.9 F 76 18 133/78 96
07/01/24 11:48 07/01/24 11:48 07/01/24 11:48 07/01/24 11:48 07/01/24 11:48
Physical Exam
Constitutional: No Acute Distress and Comfortable
Cardiovascular: Regular Rate and S1/S2
Pulmonary: Clear
Gastrointestinal: Soft, Non Tender and Non Distended
Genito-Urinary: Clear Urine (urostomy)
Musculoskeletal: Other (left knee no erythema/induration)
Neurological: AO x 3
Objective Data
Lab Data
Lab Results
07/01/24 04:06
07/01/24 04:06
Estimated Creat Clear 69 ml/min 07/01/24 04:06
Lactic Acid 0.9 mmol/L (0.7-2.0) 06/28/24 22:05
Total Bilirubin 0.4 mg/dl (0.2-1.3) 06/30/24 06:06
AST 16 U/L (17-59) L 06/30/24 06:06
ALT 17 U/L (0-50) 06/30/24 06:06
Alkaline Phosphatase 72 U/L (38-126) 06/30/24 06:06
Most recent labs reviewed.
Micro Results:
06/29/24 13:16 Blood Culture - Preliminary
Blood/Venous No Growth in 48 hours- Final report to follow
06/29/24 12:39 Blood Culture - Preliminary
Blood/Venous No Growth in 48 hours- Final report to follow
06/28/24 22:05 Blood Culture - Final
Blood/Venous Klebsiella pneumoniae
Gram Stain - Final
06/28/24 22:05 Blood Culture - Final
Blood/Venous Klebsiella pneumoniae
Gram Stain - Final
06/28/24 23:05 Urine Culture - Preliminary
Urine Gram negative bacilli
06/28/24 22:05 Influenza Types A & B (NATALIE) - Final
Nasal Swab Negative for Influenza A & B, NAAT
Negative results must be combined with clinical observations
and patient history.
Nucleic Acid Amplification test (NAAT)performed on the
[employer] platform.
06/28/24 CT a/p: No urinary calculi or elicia hydronephrosis. Prominent bilateral perinephric edema is nonspecific. Ascending urinary tract infection not excluded.
Care Review
Plan reviewed with: Physician (Dr. Aleman)
--- NOTE | 2024-07-01 16:26 | CM ---
Continue IV anbx, cx (P).
Plan: home no needs anticipated.
[2024-07-01 16:52] LABS: Glucose - Point of Care 132 mg/dl (70-99)
[2024-07-01] MEDS: LOVENOX 40 MG SC (17:37)
[2024-07-01 19:02] LABS: Hepatitis C Antibody Negative (Negative)
[2024-07-01 21:06] LABS: Glucose - Point of Care 118 mg/dl (70-99)
[2024-07-01] MEDS: LIPITOR 10 MG PO (21:56)
[2024-07-01] MEDS: STERILE WATER FOR INJECTION 10 ML IV (21:58)
[2024-07-01] MEDS: ROCEPHIN 1000 MG IV (21:58)
[2024-07-01] MEDS: FEOSOL 325 MG PO (22:30)
[2024-07-02 03:36] VITALS: BP 141/90
[2024-07-02 05:48] LABS: Hematocrit 28.4 % (39.0-52.0); Hemoglobin 9.5 g/dL (13.0-18.0); Mean Corp Hgb Conc. 33.5 g/dL (33.0-37.0); Mean Corpuscular Hgb 30.6 pg (27.0-31.0); Mean Corpuscular Volume 91.6 fL (80.0-94.0); Mean Platelet Volume 9.9 fL (7.4-10.4); Platelet Count 306 10^3/uL (130-400); Red Cell Dist. Width 13.1 % (11.5-14.5); White Blood Cell Count 6.9 10^3/uL (4.8-10.8)
[2024-07-02 06:11] LABS: Blood Urea Nitrogen 26 mg/dl (9-20); Calcium 9.7 mg/dl (8.4-10.2); Carbon Dioxide 23 mmol/L (22-30); Chloride 108 mmol/L (98-107); Estimated Creatinine Clearance 69 ml/min; Glucose 101 mg/dl (70-99); Potassium 4.3 mmol/L (3.5-5.1); Sodium 140 mmol/L (135-145); eGFR > 60.00
[2024-07-02 07:30] VITALS: BP 137/80
[2024-07-02 07:44] LABS: Glucose - Point of Care 108 mg/dl (70-99)
[2024-07-02] MEDS: NEURONTIN 300 MG PO (08:16)
[2024-07-02] MEDS: TOPROL XL 25 MG PO (08:17)
[2024-07-02] MEDS: PROZAC 20 MG PO (08:24)
[2024-07-02] MEDS: PROTONIX IV 40 MG IV (08:24)
[2024-07-02] MEDS: NSS (PRESERVATIVE FREE) 10 ML IV (08:26)
--- NOTE | 2024-07-02 09:40 | W.PN.ID1 ---
Date of Service
Date of Service: July 02, 2024
Today's Communication
Can transition to cipro.
Assessment / Plan
#Klebsiella bacteremia, source
# Complicated Klebsiella UTI
#Leukocytosis resolved
#History of bladder cancer status post cystectomy with ileal conduit
-CT of the abdomen pelvis-with nonspecific bilateral perinephric edema, cannot rule out ascending urinary tract infection
-repeat blood cultures neg
- Awaiting Ucx: Klebsiella x 2 strains, one of them Klebsiella as per micro
- Transition ceftriaxone (d4) to cipro 500mg po bid through 07/11/24. QTc normal.
# h/o left TKA with knee stiffness since post-op
- Klebsiella bacteremia/UTI is unrelated to the knee.
- Knee prosthesis does not appear infected, ROM intact.
Recent 06/10/24 synovial fluid cultures negative (off abx0
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
Diabetes mellitus
Peripheral neuropathy
CKD
Hypertension
History of bladder cancer status post chemotherapy, cystectomy with ileal conduit, immunotherapy
Diverticulitis status post sigmoid resection with colostomy subsequently reversed
left TKA
Chief Complaint
-: Bacteremia
Subjective / Review of Systems
Feels well.
Vital Signs / Physical Exam
Vital Signs
Vital Signs
Temp Pulse Resp BP Pulse Ox
97.6 F 79 16 132/80 97
07/02/24 07:30 07/02/24 08:17 07/02/24 07:30 07/02/24 08:17 07/02/24 07:30
Physical Exam
Constitutional: No Acute Distress and Comfortable
Gastrointestinal: Soft, Non Tender and Non Distended
Genito-Urinary: Clear Urine (urostomy)
Extremities: Edema
Musculoskeletal: Other (left knee without erythema/warmth/effusion; ROM intact)
Neurological: AO x 3
Objective Data
Lab Data
Lab Results
07/02/24 04:59
07/02/24 04:59
Estimated Creat Clear 69 ml/min 07/02/24 04:59
Lactic Acid 0.9 mmol/L (0.7-2.0) 06/28/24 22:05
Total Bilirubin 0.4 mg/dl (0.2-1.3) 06/30/24 06:06
AST 16 U/L (17-59) L 06/30/24 06:06
ALT 17 U/L (0-50) 06/30/24 06:06
Alkaline Phosphatase 72 U/L (38-126) 06/30/24 06:06
Most recent labs reviewed.
Micro Results:
06/28/24 23:05 Urine Culture - Final
Urine Klebsiella pneumoniae#2
Klebsiella pneumoniae
06/29/24 13:16 Blood Culture - Preliminary
Blood/Venous No Growth in 48 hours- Final report to follow
06/29/24 12:39 Blood Culture - Preliminary
Blood/Venous No Growth in 48 hours- Final report to follow
06/28/24 22:05 Blood Culture - Final
Blood/Venous Klebsiella pneumoniae
Gram Stain - Final
06/28/24 22:05 Blood Culture - Final
Blood/Venous Klebsiella pneumoniae
Gram Stain - Final
06/28/24 22:05 Influenza Types A & B (NATALIE) - Final
Nasal Swab Negative for Influenza A & B, NAAT
Negative results must be combined with clinical observations
and patient history.
Nucleic Acid Amplification test (NAAT)performed on the
[employer] platform.
06/28/24 CT a/p: No urinary calculi or elicia hydronephrosis. Prominent bilateral perinephric edema is nonspecific. Ascending urinary tract infection not excluded.
Care Review
Plan reviewed with: Physician (Dr. Aleman)
--- NOTE | 2024-07-02 10:19 | W.PN.HOSP.TC ---
Today's Communication/Plan
-
Discharge today
Assessment / Plan
Assessment / Plan
Physical Exam
General: Not in acute distress
HEENT: Normocephalic
Cardiac: S1 and S2. Regular Rate and Rhythm
GI: Positive bowel sounds. Soft, Nontender and Nondistended.
Skin: Warm. Dry.
Neuro: Awake, Alert, Oriented x3
Psych: Calm
Assessment/Plan
69 y/o male with PMHX of DM, HTN, neuropathy, BPH, Hx of urinary bladder CA s/p resection and diverting urostomy came after episode of syncope with lightheadedness prodrome, no chest pain or palpitation reported. Patient was seen in oncology office
in AM of same day and his BP was low >100. 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 Found b/l perinephric stranding on CT abd managed for pyelonephritis with K.pneumonia bacteremia
#Syncope most likely 2/2 hypotension due to pyelonephritis, concern for sepsis on admission complicated with bacteremia
#Hx of urinary bladder ca s/p diverting urostomy
#Klebsiella bacteremia, source
#Complicated Klebsiella UTI
#Leukocytosis resolved
#History of bladder cancer status post cystectomy with ileal conduit
Continue monitoring on telemetry while inpatient. No reported seizure activity
Transition ceftriaxone (d4) to cipro 500mg po bid through 07/11/24. QTc normal -- recheck QTc outpatient.
Repeat blood cultures negative
Hold HCTZ
Resume Losartan on discharge
Encourage oral intake as patient feeling on baseline on the second day after admission and capable to hydrate
TSH WNL
HEad CT without acute abnormality
Urostomy care
#DANAY vs CKD
Follow Cr
BMP with PCP in 2 to 3 days
#DM type 2 with neuropathy
Hold metformin until outpatient follow-up/repeat BMP
Accuchecks, Insulin SS, DM diet
Follow low-sodium, DM diet
#Anemia
no overt bleeding
mixed chronic and AGUSTIN
follow CBC
patient has hematology/oncology in [facility]
Encourage to follow with them
PO Iron started
#History of left TKA with knee stiffness since post-op
- Klebsiella bacteremia/UTI is unrelated to the knee as per ID
- Knee prosthesis does not appear infected, ROM intact.
Recent 06/10/24 synovial fluid cultures negative (off abx0
#Diverticulitis status post sigmoid resection with colostomy subsequently reversed
#Pulmonary nodule
known to patient, monitored with regular CT
#Essential HTN
#History of premature arrhythmia
#Peripheral Neuropathy History
DVT Prophylaxis: SCDs. Lovenox.
Code Status: Full code
More than 30 minutes spent in discharge including
Final examination of the patient
Summarizing hospital stay
Instructions for continuing care to all relevant caregivers
Preparation of discharge records, prescriptions, and referral forms
Total time spent (in minutes): 39
Anticipated Discharge: Today
Subjective/Interval History
-
Date of Service: July 02, 2024
Patient was seen and examined. He denied any fever, chills, chest pain, shortness of breath or any other symptoms or complaints.
Objective Data
-
Labs:
Laboratory Results
07/02/24
04:59
WBC 6.9
Hgb 9.5 L
Hct 28.4 L
Plt Count 306
Sodium 140
Potassium 4.3
Chloride 108 H
Carbon Dioxide 23
BUN 26 H
Creatinine 1.2
Glucose 101 H
Calcium 9.7
Vital Signs:
Vital Signs
Temp Pulse Resp BP Pulse Ox
97.6 F 79 16 132/80 97
07/02/24 07:30 07/02/24 08:17 07/02/24 07:30 07/02/24 08:17 07/02/24 07:30
I&O
07/01/24 07/02/24 07/03/24
06:59 06:59 06:59
Intake Total 1160 / 1160 960 / 960
Output Total 2375 / 2375 2200 / 2200
Balance -1215 / -1215 -1240 / -1240
[2024-07-02 12:04] LABS: Glucose - Point of Care 113 mg/dl (70-99)
--- NOTE | 2024-07-02 14:00 | CM ---
MD entered order for discharge.
Spoke with pt in room He said he was ready for discharge.
IMM reviewed with him . IMM copy given . IMM signed on chart.
Offered VN he declined need.
Sophie will drive him home.
PLAN Home no needs
== END 2024-07-02 15:15 | disposition home or self-care (01) | DRG 872 ==
LOC: 4 EAST ACU 00:52
PROVIDERS: Internal Medicine; ADMITTING PHYSICIAN Hospitalist; ATTENDING PHYSICIAN Hospitalist; CONSULT PHYSICIAN Internal Medicine Infectious Disease; EMERGENCY PHYSICIAN Emergency Medicine; FAMILY PHYSICIAN Family Medicine
DX: A41.9 Sepsis, unspecified organism (principal); N10 Acute pyelonephritis; N17.9 Acute kidney failure, unspecified; B96.1 Klebsiella pneumoniae [K. pneumoniae] as the cause of diseases classified elsewhere; D64.9 Anemia, unspecified; E11.9 Type 2 diabetes mellitus without complications; I12.9 Hypertensive chronic kidney disease with stage 1 through stage 4 chronic kidney disease, or unspecified chronic kidney disease; E11.22 Type 2 diabetes mellitus with diabetic chronic kidney disease; N18.9 Chronic kidney disease, unspecified; Z85.51 Personal history of malignant neoplasm of bladder
CPT/HCPCS: 70450; 71046; 74176; 80048; 80053; 81003; 81015; 82607; 82746; 82962; 83036; 83540; 83550; 83605; 84443; 84484; 85014; 85018; 85025; 85027; 86803; 87040; 87077; 87086; 87149; 87186; 87205; 87502; 87811; 93005; 96361; 96374; 97110; 97162; 99285